=== PATIENT | female | born 1990 | race Caucasian/White ===

== ENCOUNTER 2016-11-09 02:15 | Observation (INO) | payer BC ==
[2016-11-09] MEDS ORDERED: ONDANSETRON 4 MG/2 ML VIAL IVP STA (02:50)
[2016-11-09] MEDS ORDERED: HYDROmorphone 1 MG/ML 1 ML SYRINGE IVP STA ×2 (02:50→03:52)
[2016-11-09] MEDS ORDERED: SODIUM CHLORIDE 0.9% 500 ML IV STA (02:50)
--- NOTE | 2016-11-09 02:56 | ED ---
Abdominal Pain HPI - General Chief Complaint: Abdominal Pain Stated Complaint: abd pain, poss appendix Time Seen by Provider: 11/09/16 02:30 Source: patient Mode of arrival: ambulatory Limitations: no limitations - History of Present Illness Initial Comments: This patient is a 26-year-old woman who presents to be evaluated for right lower quadrant pain that started proximal to 6 hours ago. The patient [place] that [place] the [place] the [place] came on. She is not able to relate the pain to any trauma or to food consumption. The patient states that the pain feels cramping. It was initially mild to moderate but has become severe. The pain is worse if she lies back. It is better if she holds her right leg up flexed. The patient states she has had some accompanying nausea but no vomiting. She does not have any change in bowel movements or urination. The patient notes that her last period was 2 weeks ago and seemed like it was normal. No vaginal discharge. She initially thought this was related to ovarian cyst, but states that when she had those previously she had bilateral pelvic pain, and it was not nearly this severe. MD Complaint: abdominal pain Onset/Timin -: hour(s) Location: RLQ Radiation: none Migration to: no migration Severity: severe Quality: cramping Consistency: constant Improves With: nothing Worsens With: movement Associated Symptoms: nausea - Related Data Home Medications Medication Instructions Recorded Confirmed Calcium Carbonate [Tums] 500 mg PO TID PRN 01/14/16 01/14/16 Ibuprofen [Motrin] 800 mg PO Q6HR PRN 01/14/16 01/14/16 Previous Rx's Medication Instructions Recorded Hydrocodone/Acetaminophen [[place] 1 tab PO Q6HR PRN #20 tab 01/14/16 5-325] Sulfamethox-Tmp 800-160Mg [Bactrim 1 each PO Q12HR #20 tab 01/14/16 Ds] Allergies Allergy/AdvReac Type Severity Reaction Status Date / Time cefaclor [From Ceclor] AdvReac Swelling Verified 11/09/16 02:28 Review of Systems ROS Statement: Those systems with pertinent positive or pertinent negative responses have been documented in the HPI. ROS Other: All systems not noted in ROS Statement are negative. Constitutional: Denies: fever, chills Respiratory: Denies: cough, dyspnea Cardiovascular: Denies: chest pain, palpitations, edema, syncope Gastrointestinal: Reports: as per HPI, abdominal pain, nausea. Denies: vomiting , diarrhea, constipation Genitourinary: Denies: dysuria, hematuria, discharge, abnormal menses Musculoskeletal: Denies: back pain Skin: Denies: rash Neurological: Denies: headache, weakness, numbness Past Medical History Past Medical History: No Reported History Additional Past Medical History / Comment(s): polycystic ovarian disease History of Any Multi-Drug Resistant Organisms: None Reported Past Surgical History: Adenoidectomy, Tonsillectomy Additional Past Surgical History / Comment(s): pilonidal cyst x2 Past Psychological History: No Psychological Hx Reported Smoking Status: Never smoker Past Alcohol Use History: None Reported Past Drug Use History: None Reported General Exam Limitations: no limitations General appearance: alert, in distress (Related to abdominal pain), obese Head exam: Present: atraumatic, normocephalic Eye exam: Present: normal appearance. Absent: scleral icterus, conjunctival injection Respiratory exam: Present: normal lung sounds bilaterally. Absent: respiratory distress, wheezes, rales, rhonchi, stridor Cardiovascular Exam: Present: regular rate, normal rhythm (Heart rate 92 at my exam), normal heart sounds. Absent: systolic murmur, diastolic murmur, rubs, gallop GI/Abdominal exam: Present: soft, tenderness (Right lower quadrant), guarding, normal bowel sounds. Absent: distended, rebound, rigid, mass, bruit, pulsatile mass, hernia Back exam: Present: normal inspection. Absent: CVA tenderness (R), CVA tenderness (L) Neurological exam: Present: alert Skin exam: Present: warm, dry, intact, normal color. Absent: rash Course Vital Signs 11/09/16 02:26 Temperature 97.8 F Pulse Rate 103 H Respiratory 22 Rate Blood Pressure 143/84 O2 Sat by Pulse 99 Oximetry Medical Decision Making - Lab Data Result diagrams: 11/09/16 03:00 11/09/16 03:00 Lab Results 11/09/16 11/09/16 11/09/16 Range/Units 03:00 03:00 03:00 WBC 11.9 H (3.8-10.6) k/uL RBC 4.66 (3.80-5.40) m/uL Hgb 13.2 (11.4-16.0) gm/dL Hct 39.9 (34.0-46.0) % MCV 85.5 (80.0-100.0) fL MCH 28.4 (25.0-35.0) pg MCHC 33.2 (31.0-37.0) g/dL RDW 13.8 (11.5-15.5) % Plt Count 338 (150-450) k/uL Neutrophils % 70 % Lymphocytes % 21 % Monocytes % 6 % Eosinophils % 2 % Basophils % 1 % Neutrophils # 8.3 H (1.3-7.7) k/uL Lymphocytes # 2.5 (1.0-4.8) k/uL Monocytes # 0.7 (0-1.0) k/uL Eosinophils # 0.2 (0-0.7) k/uL Basophils # 0.1 (0-0.2) k/uL Sodium 143 (137-145) mmol/L Potassium 4.3 (3.5-5.1) mmol/L Chloride 105 (98-107) mmol/L Carbon Dioxide 23 (22-30) mmol/L Anion Gap 15 mmol/L BUN 15 (7-17) mg/dL Creatinine 0.70 (0.52-1.04) mg/dL Est GFR (MDRD) Af Amer >60 (>60 ml/min/1.73 sqM) Est GFR (MDRD) Non-Af >60 (>60 ml/min/1.73 sqM) Glucose 107 H (74-99) mg/dL Calcium 9.5 (8.4-10.2) mg/dL Total Bilirubin 0.5 (0.2-1.3) mg/dL AST 23 (14-36) U/L ALT 45 (9-52) U/L Alkaline Phosphatase 101 (38-126) U/L Total Protein 7.5 (6.3-8.2) g/dL Albumin 4.6 (3.5-5.0) g/dL Amylase 64 (30-110) U/L Lipase 133 (23-300) U/L Urine Color Urine Appearance (Clear) Urine pH (5.0-8.0) Ur Specific [place] (1.001-1.035) Urine Protein (Negative) Urine Glucose (UA) (Negative) Urine Ketones (Negative) Urine Blood (Negative) Urine Nitrate (Negative) Urine Bilirubin (Negative) Urine Urobilinogen (<2.0) mg/dL Ur Leukocyte Esterase (Negative) Urine RBC (0-5) /hpf Urine WBC (0-5) /hpf Ur Squamous Epith Cells (0-4) /hpf Urine HCG, Qual Not Detected (Not Detectd) 11/09/16 Range/Units 03:00 WBC (3.8-10.6) k/uL RBC (3.80-5.40) m/uL Hgb (11.4-16.0) gm/dL Hct (34.0-46.0) % MCV (80.0-100.0) fL MCH (25.0-35.0) pg MCHC (31.0-37.0) g/dL RDW (11.5-15.5) % Plt Count (150-450) k/uL Neutrophils % % Lymphocytes % % Monocytes % % Eosinophils % % Basophils % % Neutrophils # (1.3-7.7) k/uL Lymphocytes # (1.0-4.8) k/uL Monocytes # (0-1.0) k/uL Eosinophils # (0-0.7) k/uL Basophils # (0-0.2) k/uL Sodium (137-145) mmol/L Potassium (3.5-5.1) mmol/L Chloride (98-107) mmol/L Carbon Dioxide (22-30) mmol/L Anion Gap mmol/L BUN (7-17) mg/dL Creatinine (0.52-1.04) mg/dL Est GFR (MDRD) Af Amer (>60 ml/min/1.73 sqM) Est GFR (MDRD) Non-Af (>60 ml/min/1.73 sqM) Glucose (74-99) mg/dL Calcium (8.4-10.2) mg/dL Total Bilirubin (0.2-1.3) mg/dL AST (14-36) U/L ALT (9-52) U/L Alkaline Phosphatase (38-126) U/L Total Protein (6.3-8.2) g/dL Albumin (3.5-5.0) g/dL Amylase (30-110) U/L Lipase (23-300) U/L Urine Color Yellow Urine Appearance Cloudy H (Clear) Urine pH 7.0 (5.0-8.0) Ur Specific [place] 1.018 (1.001-1.035) Urine Protein Negative (Negative) Urine Glucose (UA) Negative (Negative) Urine Ketones Negative (Negative) Urine Blood Negative (Negative) Urine Nitrate Negative (Negative) Urine Bilirubin Negative (Negative) Urine Urobilinogen <2.0 (<2.0) mg/dL Ur Leukocyte Esterase Moderate H (Negative) Urine RBC 1 (0-5) /hpf Urine WBC 6 H (0-5) /hpf Ur Squamous Epith Cells 5 H (0-4) /hpf Urine HCG, Qual (Not Detectd) Disposition Clinical Impression: Abdominal pain, Appendicitis Disposition: ADMITTED IP TO THIS HOSP Condition: Fair
[2016-11-09 03:13] LABS: Basophils # (A) 0.1 k/uL (0-0.2); Basophils % (A) 1 %; CH 29.2; CHCM 34.3; Eosinophils # (A) 0.2 k/uL (0-0.7); Eosinophils % (A) 2 %; HCT 39.9 % (34.0-46.0); HDW 2.76; HGB 13.2 gm/dL (11.4-16.0); Luc # (Auto) 0.17; Luc % (Auto) 1; Lymphocytes # (A) 2.5 k/uL (1.0-4.8); Lymphocytes % (A) 21 %; MCH 28.4 pg (25.0-35.0); MCHC 33.2 g/dL (31.0-37.0); MCV 85.5 fL (80.0-100.0); Mean Platelet Volume 6.8; Monocytes # (A) 0.7 k/uL (0-1.0); Monocytes % (A) 6 %; Neutrophils # (A) 8.3 k/uL (1.3-7.7); Neutrophils % (A) 70 %; RBC 4.66 m/uL (3.80-5.40); RDW 13.8 % (11.5-15.5); WBC 11.9 k/uL (3.8-10.6); WBC (Perox) 12.04
[2016-11-09 03:16] LABS: Appearance,Urine Cloudy (Clear); Bilirubin,Urine Negative (Negative); Glucose,Urine (UA) Negative (Negative); Ketones,Urine Negative (Negative); Leukocyte Esterase,Urine Moderate (Negative); Nitrite,Urine Negative (Negative); Particle Count 3408; Protein,Urine Negative (Negative); RBC,Urine 1 /hpf (0-5); Specific Gravity,Urine 1.018 (1.001-1.035); Squamous Epithelial Cell,Urine 5 /hpf (0-4); UA Billing (MACRO vs. MICRO) MICRO; Urobilinogen,Urine <2.0 mg/dL (<2.0); WBC,Urine 6 /hpf (0-5)
[2016-11-09 03:22] LABS: ALT 45 U/L (9-52); AST 23 U/L (14-36); Alkaline Phosphatase 101 U/L (38-126); Amylase 64 U/L (30-110); Anion Gap 15 mmol/L; Blood Urea Nitrogen 15 mg/dL (7-17); Calcium 9.5 mg/dL (8.4-10.2); Carbon Dioxide 23 mmol/L (22-30); Chloride 105 mmol/L (98-107); Glucose 107 mg/dL (74-99); Non-African American GFR(MDRD) >60 (>60 ml/min/1.73 sqM); Potassium 4.3 mmol/L (3.5-5.1); Sodium 143 mmol/L (137-145); Total Bilirubin 0.5 mg/dL (0.2-1.3); Total Protein 7.5 g/dL (6.3-8.2)
--- NOTE | 2016-11-09 03:47 | CT ---
EXAM: CT Abdomen and Pelvis Without Intravenous Contrast. CLINICAL HISTORY: Reason: abdominal pain TECHNIQUE: Axial computed tomography images of the abdomen and pelvis without intravenous contrast. CTDI is 36.90 mGy and DLP is 1936.20 mGy-cm COMPARISON: No relevant prior studies available. FINDINGS: Lower thorax: No acute findings. ABDOMEN: Liver: Unremarkable. Gallbladder and bile ducts: Unremarkable. No calcified stones. No ductal dilation. Pancreas: Unremarkable. No ductal dilation. Spleen: Unremarkable. No splenomegaly. Adrenals: Unremarkable. No mass. Kidneys and ureters: Unremarkable. No obstructing stones. No hydronephrosis. PELVIS: Bladder: Unremarkable. No stones. Reproductive: Unremarkable as visualized. Appendix: Dilated appendix measuring up to 12 mm on axial image 95, with mild periappendiceal stranding consistent with acute appendicitis. ABDOMEN + PELVIS: Stomach and bowel: Unremarkable. No obstruction. No mucosal thickening. Peritoneum: Unremarkable. No significant fluid collection. No free air. Lymph nodes: Scattered borderline prominent right lower quadrant mesenteric nodes, presumably reactive/related. Vasculature: Unremarkable. No aortic aneurysm. Bones: There are mild degenerative changes including disc space narrowing and endplate osteophyte formation at L5-S1. No acute fracture. IMPRESSION: Findings consistent with acute appendicitis. No associated abscess or free air. [employer] 11/09/16 03:49 Call Doctor Regarding Appendicitis, called Dr. Keita on 11/09 03:49 (-05:00)
[2016-11-09] MEDS ORDERED: NALOXONE 0.4 MG/ML 1 ML VIAL IV PRN (03:53)
[2016-11-09] MEDS ORDERED: ONDANSETRON 4 MG/2 ML VIAL IVP PRN (03:53)
[2016-11-09] MEDS: SODIUM CHLORIDE 0.9% 1,000 ML IV SCH ×2 (04:47→13:25)
[2016-11-09] MEDS ORDERED: AMPICILLIN-SULBACTAM 3 GM in SODIUM CHLORIDE 0.9% 100 ML IVPB ONE (05:00)
[2016-11-09 05:35] VITALS: BMI 44.4
[2016-11-09] MEDS: HYDROmorphone 1 MG/ML 1 ML SYRINGE IV PRN ×8 (06:37→23:16)
[2016-11-09] MEDS: FAMOTIDINE 20 MG/2 ML VIAL IV SCH ×2 (08:05→22:49)
--- NOTE | 2016-11-09 08:32 | P.GSHP ---
History of Present Illness H&P Date: 11/09/16 Chief Complaint: Right lower quadrant pain 26-year-old female who presented on the day of admission to the emergency room to be evaluated for a chief complaint of developing sudden onset of right lower quadrant pain approximately 6-7 hours prior to coming into the emergency room. Patient stated the pain did not seem to be related to any food. Patient stated the pain seemed to be worse if she lay flat. Seem to be relieved the pain if she held her right leg in a flexed position. Patient stated additionally she had a nausea sensation but did not vomit. There's been no change in bowel habits. No burning on urination or frequency. No fever or temp. Patient stated initially it started mild discomfort but now has become more symptomatic more severe. Patient stated at first she thought that the pain was due to her ovarian cyst. A noted with prior episodes with ovarian cyst had bilateral pelvic pain. This pain was different. Patient stated her last menstrual period was 2 weeks ago and it was normal. past medical history hypertension, and polycystic ovarian disease. Patient's past surgical history tonsillectomy, adenoidectomy, and pilonidal cyst addressed approximately 6 years ago. Currently the patient states continues to have pain in the right lower quadrant tender to the touch. In the emergency room the temp is 97. White count 11.9. In the urine hCG qual negative urinalysis negative amylase and lipase within normal limits liver enzymes not elevated CAT scan of the abdomen and pelvis without IV contrast done in the emergency room showed mild periappendical straining consistent with acute appendicitis - Review of Systems Comment: Essentially unremarkable except as mentioned in the present illness Past Medical History Past Medical History: No Reported History, Hypertension Additional Past Medical History / Comment(s): polycystic ovarian disease History of Any Multi-Drug Resistant Organisms: None Reported Past Surgical History: Adenoidectomy, Tonsillectomy Additional Past Surgical History / Comment(s): pilonidal cyst x3 Past Anesthesia/Blood Transfusion Reactions: No Reported Reaction Past Psychological History: Anxiety, Depression Additional Psychological History / Comment(s): mood disorder Smoking Status: Never smoker Past Alcohol Use History: None Reported Past Drug Use History: None Reported - Past Family History Father Family Medical History: Diabetes Mellitus, Hypertension, Myocardial Infarction ( [place]) Mother Family Medical History: Hypertension Medications and Allergies Home Medications Medication Instructions Recorded Confirmed Type Atenolol [Tenormin] 25 mg PO DAILY 11/09/16 11/09/16 History Escitalopram [Lexapro] 20 mg PO DAILY 11/09/16 11/09/16 History Ibuprofen [Motrin] 400 mg PO Q6HR PRN 11/09/16 11/09/16 History Ranitidine HCl [Zantac] 150 mg PO HS PRN 11/09/16 11/09/16 History Allergies Allergy/AdvReac Type Severity Reaction Status Date / Time cefaclor [From Ceclor] AdvReac Swelling Verified 11/09/16 02:28 Surgical - Exam Vital Signs Temp Pulse Resp BP Pulse Ox 97.8 F 103 H 22 143/84 99 11/09/16 02:26 11/09/16 02:26 11/09/16 02:26 11/09/16 02:26 11/09/16 02:26 GENERAL APPEARANCE: 26-year-old female patient is alert, oriented, in no acute distress. Continues to report having right lower quadrant pain with a sensation of nausea VITAL SIGNS: Reviewed HEENT: Head is normocephalic and atraumatic. Pupils are equal and reactive. The nares are patent. Oropharynx is clear without lesions. NECK: Supple without lymphadenopathy. Traches midline. HEART: S1, S2. Regular rate and rhythm. No murmur noted LUNGS: No crackles or wheezes are heard. Essentially clear with adequate air movement on room air no cough ABDOMEN: Soft, tenderness to the right lower quadrant nondistended with good bowel sounds. No peritoneal signs. No palpable organomegaly or masses. EXTREMITIES: Normal skin color and turgor. No cyanosis, rash, ulceration, clubbing or edema. Radial pedal pulses are 2/4 bilaterally. NEUROLOGICAL: No focal deficits. Strength and sensation are grossly intact. Results - Labs 11/09/16 03:00 11/09/16 03:00 Assessment and Plan Plan: Impression Present on admission right lower quadrant pain suspect due to acute appendicitis Present on admission leukocytosis Essential hypertension Depressive disorder nonspecified History of polycystic ovarian disease Morbid obesity BMI 44 Plan Keep nothing by mouth tentatively scheduled for possible appendectomy today IV fluid 150 an hour DVT and GI prophylaxis Pain control Further recommendations pending The above dictated assessment and findings were discussed with Dr. Borden. Impression and the plan of care have been dictated as directed. Janeth Garcia nurse practitioner acting as a scribe for Dr. Stephens
[2016-11-09] MEDS: AMPICILLIN-SULBACTAM 3 GM in SODIUM CHLORIDE 0.9% 100 ML IVPB SCH ×2 (12:25→20:06)
[2016-11-09] MEDS ORDERED: HEPARIN SODIUM,PORCINE 5,000 UNIT/ML 1 ML VIAL SQ STA (16:22)
--- NOTE | 2016-11-09 16:22 | P.HPADDEND ---
H&P Addendum H&P Addendum Date: 11/09/16 Recommend laparoscopic appendectomy.
[2016-11-09] MEDS ORDERED: NEOSTIGMINE 1 MG/ML 10 ML VIAL ONE (17:14)
[2016-11-09] MEDS ORDERED: ONDANSETRON 4 MG/2 ML VIAL ONE (17:14)
[2016-11-09] MEDS ORDERED: GLYCOPYRROLATE 0.2 MG/ML 2 ML VIAL ONE (17:14)
[2016-11-09] MEDS ORDERED: DEXAMETHASONE SOD PHOS (MDV) 100 MG/10 ML VIAL ONE (17:14)
[2016-11-09] MEDS ORDERED: ROCURONIUM BROMIDE 10 MG/ML 10 ML VIAL IV ONE (17:14)
[2016-11-09] MEDS ORDERED: HEPARIN SODIUM,PORCINE 5,000 UNIT/ML 1 ML VIAL ONE (17:14)
[2016-11-09] MEDS ORDERED: LIDOCAINE 1% INJ 10MG/ML (20 ML MDV) ONE (17:14)
[2016-11-09] MEDS ORDERED: SUCCINYLCHOLINE CHLORIDE 100 MG/5 ML SYR IV ONE (17:14)
[2016-11-09] MEDS ORDERED: PROPOFOL 10 MG/ML 20 ML VIAL IV ONE (17:14)
[2016-11-09] MEDS ORDERED: fentaNYL (PF) 50 MCG/ML 2 ML AMP ONE (17:14)
[2016-11-09] MEDS ORDERED: IV FLUID CONTINUATION 1,000 ML IV ONE (17:14)
[2016-11-09] MEDS ORDERED: BUPIVACAIN-EPI 0.25%-1:200,000 30 ML VIAL SQ ONE (17:54)
[2016-11-09] MEDS ORDERED: LACTATED RINGERS 1,000 ML IV ONE (17:55)
[2016-11-09] MEDS ORDERED: HYDROcodone/APAP 5-325MG 1 EACH TAB PO PRN (18:34)
[2016-11-09] MEDS ORDERED: METOCLOPRAMIDE 5 MG/ML 2 ML VIAL IVP PRN (18:34)
--- NOTE | 2016-11-09 18:34 | P.OP ---
Date of Procedure: 11/09/16 Description of Procedure: SURGEON: MARIA G SAUCEDO MD [employer]ICER: None. PREOPERATIVE DIAGNOSES: 1. Right lower quadrant abdominal pain. 2. Acute appendicitis. 3. Leukocytosis. 4. Morbid obesity due to excess calories. 5. Polycystic ovarian syndrome. 6. Anxiety. 7. Depression. 8. BMI 44.4. POSTOPERATIVE DIAGNOSES: 1. Right lower quadrant abdominal pain. 2. Acute appendicitis, non-perforated. 3. Leukocytosis. 4. Morbid obesity due to excess calories. 5. Polycystic ovarian syndrome. 6. Anxiety. 7. Depression. 8. BMI 44.4. PROCEDURES PERFORMED: 1. Laparoscopic appendectomy. ANESTHESIA: General with 30 mL 0.25% Marcaine with epinephrine. ESTIMATED BLOOD LOSS: 5 mL. SPECIMENS REMOVED: Appendix. COMPLICATIONS: None. OPERATIVE FINDINGS: 1. Acute appendicitis with dilation of the appendix without perforation and vineet -appendicitis. 2. Unremarkable small bowel and terminal ileum. 3. Liver unremarkable. 4. The colon was unremarkable INDICATIONS: The patient is a 26-year-old female who presents with less than a 24-hour history of right lower quadrant abdominal pain. She reported nausea, including anorexia. CT of the abdomen and pelvis was obtained demonstrating findings consistent with acute appendicitis. Benefits and risks, including possibility of open technique were described at length. Informed consent was obtained. DESCRIPTION OR PROCEDURE: Patient was brought to the operating room, laid in supine position. After general induction, the abdomen was prepped and draped in standard sterile fashion. Prior to incision, a timeout protocol was confirmed with surgical team regarding patient's name including procedure to be performed. Preoperative medication of Unasyn 3 g was given intraoperatively. Additionally, bilateral SCDs including heparin 5000 units was administered. A transverse infraumbilical incision was made after localizing the skin with anesthetic. A 0 degree 12 mm laparoscopic trocar entry was performed and entered into the peritoneal cavity. The abdomen was insufflated to 15 mmHg of pressure, which she tolerated well. Diagnostic laparoscopy demonstrated no injury to bowel, viscera or mesentery. A 5 mm port was placed just above the pubis. A separate 5 mm port was placed at the left upper quadrant all under direct visualization. The patient was placed in Trendelenburg position with the right side up. A systematic view within the abdominal cavity was started with the small bowel which was unremarkable. The base of the cecum was without inflammation. The appendix was dilated consistent with acute appendicitis and vineet-appendicitis. The mesoappendix of the appendix was dissected using a cordless Harmonic scalpel. The appendix was retrocecal. A 45 mm Endo KISHORE echelon stapler x 2 was fired across using a thao load. No arterial bleed was encountered. The staple line was completely hemostatic. The specimen was removed from the abdominal cavity with an Endo Catch bag through the 12 mm trocar. The fascial defect was reapproximated using 0 Vicryl in a figure-of-8 fashion. All instruments and pneumoperitoneum were evacuated from the abdominal cavity. A total of 30 mL 0.25% Marcaine with epinephrine was infiltrated in all wounds for postop analgesia. Dermabond was applied to the skin after reapproximating the incisions with 4-0 Monocryl as described. At the end of the procedure, needle, sponge, and instrument count was verified correct by rn neurosurgical. The patient had tolerated the procedure well, was taken to the postanesthesia care unit in stable condition. Intraoperative abdominal films were described and discussed with her family who were overall pleased with her level of care.
[2016-11-09] MEDS ORDERED: FAMOTIDINE 20 MG TAB PO PRN (18:35)
[2016-11-09] MEDS ORDERED: HYDROmorphone 1 MG/ML 1 ML SYRINGE IVP ONE (18:38)
[2016-11-09] MEDS ORDERED: KETOROLAC 30 MG/ML 1 ML VIAL IVP ONE (18:45)
[2016-11-09] MEDS: KETOROLAC 30 MG/ML 1 ML VIAL IVP SCH ×2 (19:30→20:06)
[2016-11-10] MEDS: AMPICILLIN-SULBACTAM 3 GM in SODIUM CHLORIDE 0.9% 100 ML IVPB SCH ×2 (00:48→06:38)
[2016-11-10] MEDS: KETOROLAC 30 MG/ML 1 ML VIAL IVP SCH ×2 (00:48→07:22)
[2016-11-10] MEDS: HYDROmorphone 1 MG/ML 1 ML SYRINGE IV PRN ×3 (01:05→06:35)
[2016-11-10 06:44] LABS: Basophils % (A) 0 %; CH 28.9; CHCM 33.7; Eosinophils % (A) 0 %; HCT 37.7 % (34.0-46.0); HDW 2.73; HGB 12.1 gm/dL (11.4-16.0); Luc # (Auto) 0.07; Luc % (Auto) 1; Lymphocytes # (A) 1.1 k/uL (1.0-4.8); Lymphocytes % (A) 13 %; MCH 27.6 pg (25.0-35.0); MCV 86.4 fL (80.0-100.0); Mean Platelet Volume 6.8; Monocytes # (A) 0.4 k/uL (0-1.0); Monocytes % (A) 4 %; Neutrophils # (A) 6.8 k/uL (1.3-7.7); Neutrophils % (A) 81 %; RBC 4.37 m/uL (3.80-5.40); RDW 13.4 % (11.5-15.5); WBC 8.4 k/uL (3.8-10.6); WBC (Perox) 8.62
[2016-11-10 08:48] VITALS: BP 128/77; PULSE 77; RESP 16; TEMP 97
[2016-11-10] MEDS ORDERED: ATENOLOL 25 MG TAB PO SCH (09:00)
[2016-11-10] MEDS: FAMOTIDINE 20 MG/2 ML VIAL IV SCH (09:08)
--- NOTE | 2016-11-10 09:18 | P.DS ---
Providers Date of admission: 11/09/16 03:53 Expected date of discharge: 11/10/16 Attending physician: Jazmyn Borden Primary care physician: Latesha Lyons - Discharge Diagnosis(es) (1) Acute appendicitis Current Visit: Yes Status: Acute (2) Morbid obesity with BMI of 40.0-44.9, adult Current Visit: Yes Status: Chronic (3) Depression Current Visit: Yes Status: Chronic (4) Anxiety Current Visit: Yes Status: Chronic (5) Polycystic disease, ovaries Current Visit: Yes Status: Chronic (6) Hypertension, essential Current Visit: Yes Status: Chronic (7) Right lower quadrant abdominal pain Current Visit: Yes Status: Acute (8) Leukocytosis Current Visit: Yes Status: Acute Hospital Course: The patient is a 26-year-old female who presented with acute appendicitis. She was taken to the operating room for an appendectomy. Postoperatively her leukocytosis had resolved. Her abdominal pain had improved. She was tolerating diet. Discharge instructions including no swimming, bathtub soaks, vigorous activity was described. The patient is due for a trip on an airplane. She was advised to minimize risk for DVTs with ankle exercises and foot rotation. Additionally , wheelchair access is also advised. Her parents were bedside and the family's questions were answered. Pertinent Studies: CT of the abdomen and pelvis demonstrating acute appendicitis Procedures: Laparoscopic appendectomy. Patient Condition at Discharge: Stable Plan - Discharge Summary New Discharge Prescriptions: HYDROcodone/APAP 7.5-325MG [[place] 7.5-325] 1 tab PO Q6HR PRN #60 tab PRN Reason: Pain Discharge Medication List Atenolol [Tenormin] 25 mg PO DAILY 11/09/16 [History] Escitalopram [Lexapro] 20 mg PO DAILY 11/09/16 [History] HYDROcodone/APAP 7.5-325MG [[place] 7.5-325] 1 tab PO Q6HR PRN #60 tab 11/09/16 [ Rx] Ibuprofen [Motrin] 400 mg PO Q6HR PRN 11/09/16 [History] Ranitidine HCl [Zantac] 150 mg PO HS PRN 11/09/16 [History] Follow up Appointment(s)/Referral(s): Eloy Charlton MD [Primary Care Provider] - 1-2 days Jazmyn Borden MD [STAFF PHYSICIAN] - 11/16/16 Patient Instructions/Handouts: Laparoscopic Appendectomy (DC) Activity/Diet/Wound Care/Special Instructions: Diet as tolerated. No lifting over 4 pounds in 2 weeks. May shower tomorrow. No bathtub soaks. Please ambulate at least 4 times daily. No swimming. No vigorous activity Discharge Disposition: HOME SELF-CARE
--- NOTE | 2016-11-10 09:26 | P.PN ---
Subjective Principal diagnosis: Acute appendicitis The patient is postop day 1 status post laparoscopic appendectomy. Her parents are at bedside. Abdominal pain is moderately improved. She's smiling this morning. She's tolerating diet. Objective - Vital Signs Vital signs: Vital Signs Temp 97.0 F L 11/10/16 07:44 Pulse 77 11/10/16 07:44 Resp 16 11/10/16 07:44 BP 128/77 11/10/16 07:44 Pulse Ox 97 11/10/16 07:44 Intake & Output 11/09/16 11/10/16 11/10/16 18:59 06:59 18:59 Intake Total 850 970 Output Total 730 1350 Balance 120 -380 Intake: IV 850 970 Sodium Chloride 0.9% 1, 970 000 ml @ 150 mls/hr IV . Q6H40M [facility] Rx#:[id number] Output: Urine 725 1350 Estimated Blood Loss 5 Other: Voiding Method Toilet # Voids 1 1 - Exam GENERAL: Well developed and in no acute distress. Pleasant. HEENT: No sclera icterus. Extraocular movements grossly intact. Moist buccal mucosa. Head is atraumatic, normocephalic. Hears conversational speech. No nasal drainage. NECK: Supple without lymphadenopathy. No JV distention. CHEST: Non-labored respirations and equal bilateral excursions. CARDIOVASCULAR: Regular rate and rhythm. Palpable 2+ radial pulses. ABDOMEN: Soft, nontender. Nondistended. Incisions clean dry and intact with Dermabond. No signs of infection. MUSCULOSKELETAL: No clubbing, cyanosis or edema. NEUROLOGIC: No focal or lateralizing signs. PSYCH: Appropriate affect. Alert and oriented to person, place and time. - Labs CBC & Chem 7: 11/10/16 06:24 11/09/16 03:00 Assessment and Plan (1) Acute appendicitis Status: Acute (2) Morbid obesity with BMI of 40.0-44.9, adult Status: Chronic (3) Depression Status: Chronic (4) Anxiety Status: Chronic (5) Polycystic disease, ovaries Status: Chronic (6) Hypertension, essential Status: Chronic (7) Right lower quadrant abdominal pain Status: Acute (8) Leukocytosis Status: Acute Plan: 1. Clinically she is doing well. 2. Discharge instructions reviewed with the patient including parents. 3. Patient to follow-up in the office after returning from a trip to [place].
== END 2016-11-10 12:15 | disposition home or self-care (01) ==
LOC: EC 02:15 → 6PED 03:53 → INTOOBSV 03:53
PROVIDERS: ADMIT Surgery Plastic and Reconstructive Surgery; ATTEND Surgery Plastic and Reconstructive Surgery
DX: K35.80 Unspecified acute appendicitis (principal); E66.01 Morbid (severe) obesity due to excess calories; Z68.41 Body mass index [BMI] 40.0-44.9, adult; F32.9 Major depressive disorder, single episode, unspecified; F41.9 Anxiety disorder, unspecified; E28.2 Polycystic ovarian syndrome; I10 Essential (primary) hypertension; Z88.1 Allergy status to other antibiotic agents
CPT/HCPCS: 36415; 88304; 80053; 82150; 83690; 85025 ×2; 81001; 88342; 81025; 88341; 74176; 44970; 99285; 96374; 96375; 96376; G0378 ×2; J1644; J2710; J2405; J2001; J3010; J1885 ×2; J1170 ×2; J0295 ×2; J1100; J0330; J2704

== ENCOUNTER 2017-01-07 12:21 | Emergency (ER) | payer SELFPAY ==
[2017-01-07 12:31] VITALS: TEMP 98.1
--- NOTE | 2017-01-07 12:47 | ED ---
General Adult HPI - General Chief complaint: Psychiatric Symptoms Stated complaint: Mental Health Time Seen by Provider: 01/07/17 12:27 Source: patient, RN notes reviewed Mode of arrival: ambulatory Limitations: no limitations - History of Present Illness Initial comments: Patient's a 6-year-old female who presents emergency room today with chief complaint of having increased depression and suicidal thoughts. Patient does admit that she's never seen a therapist or counselor in the past. She states that she's had a difficult time sleeping. States she's having racing thoughts. She states that she's had increased anxiety. States recently over the last few days she's been having more depression difficult time getting out of bed thoughts of hurting herself. She states she had thoughts of taking pills. She denies any homicidal thoughts or plans. Denies any other complaints. Patient denies any recent fever, chills, shortness of breath, chest pain, back pain, abdominal pain, nausea or vomiting, numbness or tingling, dysuria or hematuria, constipation or diarrhea, headaches or visual changes, or any other complaints. - Related Data Home Medications Medication Instructions Recorded Confirmed Atenolol [Tenormin] 25 mg PO DAILY 11/09/16 01/07/17 Escitalopram [Lexapro] 20 mg PO DAILY 11/09/16 01/07/17 Ibuprofen [Motrin] 400 mg PO Q6HR PRN 11/09/16 01/07/17 Ranitidine HCl [Zantac] 150 mg PO HS PRN 11/09/16 01/07/17 Previous Rx's Medication Instructions Recorded HYDROcodone/APAP 7.5-325MG [[place] 1 tab PO Q6HR PRN #60 tab 11/09/16 7.5-325] Allergies Allergy/AdvReac Type Severity Reaction Status Date / Time celery Allergy Anaphylaxis Verified 01/07/17 13:35 gluten Allergy Nausea & Verified 01/07/17 13:35 Vomiting & Diarrhea cefaclor [From Ceclor] AdvReac Swelling Verified 01/07/17 13:35 Review of Systems ROS Statement: Those systems with pertinent positive or pertinent negative responses have been documented in the HPI. ROS Other: All systems not noted in ROS Statement are negative. Past Medical History Past Medical History: No Reported History, Hypertension Additional Past Medical History / Comment(s): polycystic ovarian disease History of Any Multi-Drug Resistant Organisms: None Reported Past Surgical History: Adenoidectomy, Appendectomy, Tonsillectomy Additional Past Surgical History / Comment(s): pilonidal cyst x3 Past Anesthesia/Blood Transfusion Reactions: No Reported Reaction Past Psychological History: Anxiety, Depression Additional Psychological History / Comment(s): mood disorder Smoking Status: Never smoker Past Alcohol Use History: Occasional Past Drug Use History: None Reported - Past Family History Father Family Medical History: Diabetes Mellitus, Hypertension, Myocardial Infarction ( [place]) Mother Family Medical History: Hypertension General Exam - General Exam Comments Initial Comments: General: The patient is awake and alert, in no distress, and does not appear acutely ill. Eye: Pupils are equal, round and reactive to light, extra-ocular movements are intact. No nystagmus. There is normal conjunctiva bilaterally. No signs of icterus. Ears, nose, mouth and throat: There are moist mucous membranes and no oral lesions. Neck: The neck is supple, there is no tenderness or JVD. Cardiovascular: There is a regular rate and rhythm. No murmur, rub or gallop is appreciated. Respiratory: Lungs are clear to auscultation, respirations are non-labored, breath sounds are equal. No wheezes, stridor, rales, or rhonchi. Musculoskeletal: Normal ROM, no tenderness. Strength 5/5. Sensation intact. Pulses equal bilaterally 2+. Neurological: A&O x 3. CN II-XII intact, There are no obvious motor or sensory deficits. Coordination appears grossly intact. Speech is normal. Skin: Skin is warm and dry and no rashes or lesions are noted. Psychiatric: Cooperative. Tearful. Limitations: no limitations Course Vital Signs 01/07/17 12:26 Temperature 98.1 F Pulse Rate 85 Respiratory 16 Rate Blood Pressure 135/72 O2 Sat by Pulse 99 Oximetry Medical Decision Making - Medical Decision Making Patient has been seen here in the emergency room by [facility]. She denies any suicidal thoughts or intentions at this time. Options of admission versus outpatient treatment were discussed with the patient and she states she feels comfortable being discharged. States she has no intention. Herself. They state that they can set up an appointment to have her seen at 6 PM tonight 2 hours from now. Plan was discussed with the patient and she is comfortable with this. Patient advised that she may return to emergency room if any symptoms increase or worsen or for any other concerns. - Lab Data Lab Results 01/07/17 01/07/17 Range/Units 12:55 12:55 Urine HCG, Qual Not Detected (Not Detectd) Urine Opiates Screen Not Detected (NotDetected) Ur Oxycodone Screen Not Detected (NotDetected) Urine Methadone Screen Not Detected (NotDetected) Ur Propoxyphene Screen Not Detected (NotDetected) Ur Barbiturates Screen Not Detected (NotDetected) U Tricyclic Antidepress Not Detected (NotDetected) Ur Phencyclidine Scrn Not Detected (NotDetected) Ur Amphetamines Screen Not Detected (NotDetected) U Methamphetamines Scrn Not Detected (NotDetected) U Benzodiazepines Scrn Not Detected (NotDetected) Urine Cocaine Screen Not Detected (NotDetected) U Marijuana (THC) Screen Not Detected (NotDetected) Disposition Clinical Impression: Depression Disposition: HOME SELF-CARE Condition: Good Instructions: Depression (ED) Additional Instructions: Please follow-up with mental health as discussed here in emergency room. Please return to emergency room if any symptoms increase or worsen or for any other concerns. Time of Disposition: 16:07
[2017-01-07 16:33] VITALS: BP 119/66; PULSE 76; RESP 18
== END 2017-01-07 16:45 | disposition home or self-care (01) ==
LOC: EC 12:21
DX: F32.9 Major depressive disorder, single episode, unspecified (principal); F41.9 Anxiety disorder, unspecified; I10 Essential (primary) hypertension; Z79.899 Other long term (current) drug therapy; Z91.018 Allergy to other foods; Z88.8 Allergy status to other drugs, medicaments and biological substances
CPT/HCPCS: 80306; 81025; 82075; 99284